=== PATIENT | female | born 1935 | race Two or more races ===

== ENCOUNTER 2017-07-17 20:16 | Emergency (ER) | payer OTHER ==
--- NOTE | 2017-07-17 20:35 | PDOC ---
History of Present Illness - General Chief Complaint: Blood Pressure Problem Stated Complaint: HYPERTENSION Time Seen by Provider: 07/17/17 20:35 - History of Present Illness Initial Comments: 81 year old female with PMH of HTN and GERD BIBEMS with nausea, vomiting, left arm tingling, and elevated BP since this AM. Daughter at bedside and patient state that she ate her breakfast this AM and then had an episode of nausea, vomiting, and epigastric pain. She had six episodes of NBNB vomit which slowly started to worsen her epigastric pain. At some point during these vomiting episodes she had some left arm tingling. At bedside she was noted to be diaphoretic while vomiting without SOB. She has had alight cough since yesterday but was swabbed for flu last week and was negative. Denies fevers, chills, diarrhea, SOB, chest pain, back pain, lightheadedness, visual symptoms, focal neurological deficit, myalgias, or other sick symptoms. 07/17/17 20:52 Past History - Past Medical History Allergies/Adverse Reactions: Allergies Allergy/AdvReac Type Severity Reaction Status Date / Time No Known Allergies Allergy Verified 07/17/17 20:32 Home Medications: Ambulatory Orders Ondansetron [Zofran *Odt*] 8 mg SL BID PRN 5 Days #10 od.tablet 07/17/17 Review of Systems - Review of Systems Constitutional: Yes: Diaphoresis, Weakness. No: Chills, Fever, Loss of Appetite HEENTM: No: Blurred Vision, Recent change in vision Respiratory: No: Cough, Orthopnea, Shortness of Breath, Productive cough Cardiac (ROS): No: Chest Pain, Irregular Heart Rate, Lightheadedness, Palpitations, Syncope, Chest Tightness ABD/GI: Yes: Nausea, Poor Fluid Intake, Vomiting. No: Blood Streaked Bowels, Constipated, Diarrhea : No: Burning, Dysuria, Discharge Musculoskeletal: No: Back Pain, Joint Pain Integumentary: No: Bruising, Erythema, Lesions Neurological: Yes: Headache. No: Numbness, Paresthesia *Physical Exam - Physical Exam General Appearance: Yes: Nourished, Appropriately Dressed, Apparent Distress, Mild Distress (actively vomitign on first interview) HEENT: positive: EOMI, TERESITA, Normal ENT Inspection, Normal Voice Neck: positive: Trachea midline, Normal Thyroid, Supple. negative: Tender, Rigid Respiratory/Chest: negative: Chest Tender, Lungs Clear (Left lower lobe course breath sounds), Normal Breath Sounds, Respiratory Distress, Accessory Muscle Use Cardiovascular: positive: Regular Rhythm, Regular Rate Gastrointestinal/Abdominal: positive: Normal Bowel Sounds, Flat, Soft. negative : Tender Musculoskeletal: positive: Normal Inspection. negative: CVA Tenderness Extremity: positive: Normal Capillary Refill, Normal Inspection, Normal Range of Motion. negative: Tender Integumentary: positive: Normal Color, Dry, Warm Neurologic: positive: Fully Oriented, Alert, Normal Mood/Affect, Normal Response , Motor Strength 10/12 ED Treatment Course - LABORATORY CBC & Chemistry Diagram: 07/17/17 21:03 07/17/17 21:03 Medical Decision Making - Medical Decision Making 81 year old female with history of HTN and GERD presenting with nausea, vomiting, and left arm numbness after a day of cough. Given age and history of HTN will rule out cardiac cause as this could be an atypical ACS presentation. Will also rule out flu and given non-tender abdomen, will defer imaging. Will get CBC, CMP, lipase, Cardiac profile, EKG, chest xray, and give Maalox, Tylenol , famotidine, and 1 L NS. 07/17/17 21:28 EKG and labs all WNL. Flu negative. Not suspicious for flu. Will DC home with Zofran and return precautions. 07/17/17 23:06 *DC/Admit/Observation/Transfer Diagnosis at time of Disposition: Gastritis Qualifiers: Gastritis type: unspecified gastritis Chronicity: acute Gastritis bleeding: without bleeding Qualified Code(s): K29.00 - Acute gastritis without bleeding - Discharge Dispostion Disposition: HOME Condition at time of disposition: Improved Admit: No - Prescriptions Prescriptions: Ondansetron [Zofran *Odt*] 8 mg SL BID PRN 5 Days #10 od.tablet PRN Reason: Nausea And/Or Vomiting - Referrals - Patient Instructions Printed Discharge Instructions: DI for Gastritis Additional Instructions: Paz presin estuvo nomi porque probablemente tienes madonna infeccin viral de tu est ryan. Porfavor tome paz medicamento contra las nuseas y coma alimentos que rocky fciles para paz estmago. Por favor regrese al Departamento de Emergencia si tiene sntomas empeorados o nuevos sntomas. Por favor, siga con paz phsycian de atencin primaria en los prximos cao. Print Language: SETS[place] - Post Discharge Activity
[2017-07-17 20:36] VITALS: BP 147/81; PULSE 108; TEMP 98.2; BMI 31.8
[2017-07-17] MEDS ORDERED: ONDANSETRON 4 MG/2 ML VIAL IVPUSH ONE (20:48)
[2017-07-17] MEDS ORDERED: FAMOTIDINE IV 20 MG/12 ML VIAL IVPUSH ONE (20:48)
[2017-07-17] MEDS ORDERED: MAG HYDROX/AL HYDROX/SIMETH 30 ML UNIT-DOSE CUP PO ONE (20:48)
--- NOTE | 2017-07-17 20:54 | PDOC ---
Attending Attestation - HPI HPI: 07/17/17 20:58 The patient is a 81 year old female with a significant PMH of HTN and GERD who presents to the emergency department for evaluation of elevated BP and vomiting beginning approximately this morning. The patient reports about 6 episodes of NBNB vomiting with associated epigastric pain since this morning. She also notes experiencing a sudden onset of left arm tingling during the day which spans the entire left arm. The patient denies chest pain and shortness of breath. Allergies: NKA PCP: None reported. - Physicial Exam PE: 07/17/17 21:07 GENERAL: Well developed, well nourished. Awake and alert. No acute distress. HEENT: Normocephalic, atraumatic. PERRLA, EOMI. No conjunctival pallor. Sclera are non- icteric. Moist mucous membranes. Oropharynx is clear. NECK: Supple. Full ROM. No JVD. Carotid pulses 2+ and symmetric, without bruits. No thyromegaly. No lymphadenopathy. CARDIOVASCULAR: Regular rate and rhythm. No murmurs, rubs, or gallops. Distal pulses are 2+ and symmetric. PULMONARY: (+) Bibasilar crackles of the lower lung kapadia. No evidence of respiratory distress. No wheezing, rales or rhonchi. ABDOMINAL: (+) Obese. Soft. Non-tender. Non-distended. No rebound or guarding. No organomegaly. Normoactive bowel sounds. MUSCULOSKELETAL Normal range of motion at all joints. No bony deformities or tenderness. No CVA tenderness. EXTREMITIES: No cyanosis. No clubbing. No edema. No calf tenderness. SKIN: Warm and dry. Normal capillary refill. No rashes. No jaundice. NEUROLOGICAL: Alert, awake, appropriate. Cranial nerves 2-12 intact. No deficits to light touch and temperature in face, upper extremities and lower extremities. No motor deficits in the in face, upper extremities and lower extremities. Normoreflexic in the upper and lower extremities. Normal speech. Toes are downgoing bilaterally. PSYCHIATRIC: Cooperative. Good eye contact. Appropriate mood and affect. <Brock Salas - Last Filed: 07/17/17 21:19> - Resident Resident Name: Sujata Sultana - ED Attending Attestation I have performed the following: I have examined & evaluated the patient, The case was reviewed & discussed with the resident, I agree w/resident's findings & plan, Exceptions are as noted - Medical Decision Making 07/17/17 23:07 Pt treated and released. <Morris De La Vega - Last Filed: 07/17/17 23:07> Heart Score/ECG Review #1 07/17/17 21:19 Vent rate 98 bpm Sinus rhythm with 1st degree AV block Otherwise normal ECG <Brock Salas - Last Filed: 07/17/17 21:19>
[2017-07-17 21:15] LABS: BASO % 0.8 % (0-2.0); EOS % 0.2 % (0-4.5); HEMOGLOBIN 12.7 GM/dL (10.7-15.3); MCH 28.7 pg (25.7-33.7); MCHC 31.8 g/dl (32.0-36.0); MEAN CELL VOLUME 90.4 fl (80-96); MONO % 5.4 % (3.8-10.2); NEUT % 72.6 % (42.8-82.8); PLATELET COUNT 279 K/MM3 (134-434); RBC 4.42 M/mm3 (3.60-5.2); RDW 18.3 % (11.6-15.6); WHITE BLOOD COUNT 8.7 K/mm3 (4.0-10.0)
[2017-07-17] MEDS ORDERED: MAG HYDROX/AL HYDROX/SIMETH 30 ML UNIT-DOSE CUP ONE (21:15)
[2017-07-17] MEDS ORDERED: FAMOTIDINE 20 MG/50 ML IVPB 20 MG/50 ML MG IVPB ONE (21:15)
[2017-07-17] MEDS ORDERED: ONDANSETRON 4 MG/2 ML VIAL ONE (21:15)
[2017-07-17 21:49] LABS: ALBUMIN 4.3 g/dl (3.4-5.0); ALK PHOS 110 U/L (45-117); ANION GAP 8 (8-16); BILIRUBIN,TOTAL 0.4 mg/dL (0.2-1.0); BLOOD UREA NITROGEN 10 mg/dL (7-18); CALCIUM 8.8 mg/dL (8.5-10.1); CHLORIDE 104 mmol/L (98-107); CO2 28 mmol/L (21-32); CREATININE 0.7 mg/dL (0.55-1.02); GLUCOSE,RANDOM 138 mg/dL (74-106); POTASSIUM 4.5 mmol/L (3.5-5.1); SGOT/AST 17 U/L (15-37); SGPT/ALT 31 U/L (12-78); SODIUM 140 mmol/L (136-145); TOT PROT 8.1 g/dl (6.4-8.2)
[2017-07-17 22:46] LABS: URINE APPEARANCE CLEAR; URINE BILIRUBIN NEGATIVE (NEGATIVE); URINE BLOOD NEGATIVE (NEGATIVE); URINE COLOR COLORLESS; URINE GLUCOSE (UA) NEGATIVE (NEGATIVE); URINE KETONE NEGATIVE (NEGATIVE); URINE LEUK ESTERASE NEGATIVE (NEGATIVE); URINE NITRITE NEGATIVE (NEGATIVE); URINE PROTEIN NEGATIVE (NEGATIVE); URINE UROBILINOGEN NEGATIVE mg/dL (0.2-1.0)
--- NOTE | 2017-07-18 12:06 | EKG ---
Test Reason : Blood Pressure : / mmHG Vent. Rate : 098 BPM Atrial Rate : 098 BPM P-R Int : 260 ms QRS Dur : 068 ms QT Int : 348 ms P-R-T Axes : 072 012 051 degrees QTc Int : 444 ms SINUS RHYTHM WITH 1ST DEGREE A-V BLOCK OTHERWISE NORMAL ECG WHEN COMPARED WITH ECG OF 30-DEC-2010 12:43, [place] INTERVAL HAS INCREASED Confirmed by CHRIS KONG MD ([id number]) on 07/18/2017 12:06:19 PM Referred By: Confirmed By:CHRIS KONG MD
== END 2017-07-17 23:35 | disposition home or self-care (01) ==
LOC: JER 20:16
PROC: 3E033GC Introduction of Other Therapeutic Substance into Peripheral Vein, Percutaneous Approach (ICD-10-PCS; principal; 2017-07-17)
PROC: 3E033GC Introduction of Other Therapeutic Substance into Peripheral Vein, Percutaneous Approach (ICD-10-PCS; 2017-07-17)
DX: K29.00 Acute gastritis without bleeding (principal); I10 Essential (primary) hypertension; K21.9 Gastro-esophageal reflux disease without esophagitis
CPT/HCPCS: 36415; 71045-TC; 80053; 81003; 82550; 83690; 84484; 85025; 87086; 87804; 93005; 93010; 99283-25